=== PATIENT | male | born 1955 | race Caucasian/White ===

== ENCOUNTER 2023-05-20 07:55 | Day surgery (SDC) | payer MEDICARE ==
[~2023-05-20] VITALS: Ht 177.8 cm; Wt 56.8 kg
[~2023-05-20 07:55] MED LIST: AMLO5TAB16 PO; FLUO-1 PO; LORA-268 PO; METO-395 PO; MSC30T PO; NOR5T PO; ONDA4TAB6 PO; PANT40TA54 PO; TEST200V33 IM
[2023-05-20 08:06] VITALS: BP 126/72; PULSE 77; RESP 15
[2023-05-20] MEDS ORDERED: ONDA4TAB12 PO (08:17)
[2023-05-20] MEDS ORDERED: fentaNYL/PF 50MCG/1 ML 2ML syringe ONE (08:55)
[2023-05-20] MEDS ORDERED: MIDAZolam 1 MG/ML 5ML VIAL ONE (08:55)
[2023-05-20] MEDS ORDERED: diphenhydrAMINE 50 mg/ml inj ONE (08:55)
[2023-05-20] MEDS ORDERED: LIDOcaine Viscous 15ml cup ONE (08:56)
[2023-05-20 09:22] VITALS: BP 127/73; PULSE 75; RESP 13; O2SAT 100
[2023-05-20 09:31] VITALS: BP 119/71; PULSE 77; RESP 11; O2SAT 100
[2023-05-20 09:41] VITALS: BP 118/75; PULSE 74; RESP 11; O2SAT 100
[2023-05-20 09:51] VITALS: BP 105/71; PULSE 76; RESP 16; O2SAT 99
[2023-05-20 09:57] VITALS: BP 117/57; PULSE 73; RESP 17; O2SAT 99
== END 2023-05-20 10:08 | disposition home or self-care (01) ==
LOC: GI LAB 07:55
PROVIDERS: ATTEND Internal Medicine Gastroenterology
DX: R13.10 Dysphagia, unspecified (principal); K21.00 Gastro-esophageal reflux disease with esophagitis, without bleeding; K29.50 Unspecified chronic gastritis without bleeding; I25.2 Old myocardial infarction; F17.210 Nicotine dependence, cigarettes, uncomplicated; Z88.5 Allergy status to narcotic agent; Z88.8 Allergy status to other drugs, medicaments and biological substances; Z79.899 Other long term (current) drug therapy
CPT/HCPCS: 43239; G0500; J2250; J3010; J7030; Z7512; 99152; A4620; J1200